=== PATIENT | male | born 1955 | race Caucasian/White ===

== ENCOUNTER → 2020-11-08 14:13 | Outpatient (CLI) | payer MEDICARE, SELFPAY ==
--- NOTE | ~2020-11-08 | CT_ITS ---
EXAMINATION: CT chest abdomen pelvis w con DATE: 11/08/2020 14:37 INDICATION: Chronic lymphocytic leukemia of B cell type in relapse TECHNIQUE: Computed tomography (CT) of the chest, abdomen, and pelvis was performed with 100 cc Omnip aque 350 intravenous contrast. Automated exposure control and iterative reconstruction technique were employed. Exam dose: 1196.32 mGy-cm total exam DLP. COMPARISON: 08/29/2017 CT chest FINDINGS: CHEST CT: There are calcified hilar and mediastinal nodes consistent with old granulomatous disease. No hilar o r mediastinal mass lesion or lymphadenopathy is evident. No thoracic aortic aneurysm or dissection. Normal heart size. Coronary artery calcification. No pericardial effusion. There is a very small sliding hiatal hernia. Calcified right upper lobe pulmonary granuloma. No pulmonary infiltrate or consolidation or pulmonary mass lesion is evident. There are scattered linear areas of atelectasis or more likely fibrosis. Bilateral small fat-containing foramen of Bochdalek hernias. ABDOMEN/PELVIS CT: The gallbladder appears unremarkable. No pericholecystic fluid or fat stranding. No bile duct or panc reatic duct dilatation. No hepatic, splenic, pancreatic or adrenal space-occupying mass lesion. Mild splenomegaly, spleen measuring up to 14.2 cm vertical dimension. There is a small cyst of each kidney, the largest measuring 6 mm, at the upper pole left kidney. No s uspicious or renal space-occupying mass lesion. No urinary tract calculus or hydroureteronephrosis. No abdominal aortic aneurysm. There are numerous shotty nonenlarged periaortic and aortocaval lymph n odes. There is one larger caudal aortocaval lymph node measuring up to 6.2 x 10.2 mm. 9.2 x 12.7 mm proximal right external iliac lymph node. Approximately 10.4 x 17.7 mm proximal left external iliac lymph node. 13.5 x 20.2 mm distal left external iliac lymph node. Bilateral inguinal lymph nodes, measuring up to approximately 8.5 x 15.7 mm on the left and 14.5 x 21 .2 mm on the right. Diverticulosis of the colon; no CT evidence of diverticulitis. The appendix is not visualized. No bow el obstruction, bowel wall thickening, pneumatosis or intraperitoneal free air is evident. Moderate prostate enlargement. The urinary bladder is unremarkable. There is a transitional lumbosacral vertebra with sacralization and pseudoarthrosis. There is very prominent hypertrophic degenerative change at the apophyseal joints. There is lumbar sp inal stenosis. No suspicious osteolytic or osteoblastic lesions are noted. IMPRESSION: Old granulomatous disease Very small sliding hiatal hernia Mild diverticulosis of the colon Mild splenomegaly 6.2 x 10.2 mm caudal aortocaval lymph node, bilateral external iliac lymph adenopathy Bilateral inguinal lymph nodes, measuring up to 8.5 x 15.7 on the left and 14.5 x 21.2 mm in the righ t Prostatomegaly Lumbar spinal stenosis Reviewed, dictated and finalized at [facility]. Reviewed, dictated and finalized at [facility]. IMPRESSION: Old granulomatous disease Very small sliding hiatal hernia Mild diverticulosis of the colon Mild splenomegaly 6.2 x 10.2 mm caudal aortocaval lymph node, bilateral external iliac lymph amadou opathy Bilateral inguinal lymph nodes, measuring up to 8.5 x 15.7 on the left and 14.5 x 21.2 mm in the right Prostatomegaly Lumbar spinal stenosis
[2020-11-08 14:28] LABS: Estimated Glomerular Filt Rate 47
== END ==
PROVIDERS: Visit Provider Internal Medicine Medical Oncology
DX: C91.12 Chronic lymphocytic leukemia of B-cell type in relapse (principal); R16.1 Splenomegaly, not elsewhere classified; K57.30 Diverticulosis of large intestine without perforation or abscess without bleeding; N40.0 Benign prostatic hyperplasia without lower urinary tract symptoms
CPT/HCPCS: 71260; 74177; Q9967

== ENCOUNTER 2022-02-07 07:21 | Emergency (ER) | payer MEDICARE, SELFPAY ==
[2022-02-07 07:24] VITALS: BP 178/99; PULSE 90; RESP 16; TEMP 36.6; O2SAT 98
--- NOTE | 2022-02-07 07:42 | ED.GENADULT ---
HPI - General Adult General Chief complaint: Skin/Abscess/Foreign Body Stated complaint: Insect bite L hand swelling Time Seen by Provider: 02/07/22 07:28 History of Present Illness HPI narrative: 66-year-old male presenting the emergency department for evaluation of left hand swelling. Patient states on morning he was at work when he got bit on the dorsum of the left hand by what he suspects was a wasp. Patient does not suspect he was punctured or injured another way. He suspects it was a wasp. Patient states he did have some pain and swelling of the hand over the course of the day on and it has continued to swell. Patient states that his was concerned this morning so she encouraged him to present to the emergency department. Related Data Home Medications Medication Instructions Recorded Confirmed allopurinol 300 mg tablet 300 mg PO DAILY 04/10/21 12/17/21 ibrutinib 420 mg tablet (Imbruvica) 420 mg PO DAILY 04/10/21 12/17/21 Allergies Allergy/AdvReac Type Severity Reaction Status Date / Time No Known Allergies Allergy Unknown Verified 02/07/22 07:27 Review of Systems Review of Systems: CONSTITUTIONAL: Denies fever, chills, or sweats. EYES: Denies visual changes, redness, or discharge. ENT: Denies rhinorrhea, congestion, sore throat, or otalgia. CARDIOVASCULAR: Denies chest pain, palpitations, or edema. RESPIRATORY: Denies cough or dyspnea. GASTROINTESTINAL: Denies abdominal pain, nausea, vomiting, or diarrhea. GENITOURINARY: Denies dysuria or hematuria. SKIN: Denies rash or itching. MUSCULOSKELETAL: See HPI NEUROLOGIC: Denies headache, numbness, or weakness. [facility] Past Medical History Medical History BMI 29.0-29.9,adult Chronic lymphocytic leukemia of B-cell type not having achieved remission Disorder of the skin and subcutaneous tissue, unspecified Lumbar spinal stenosis Screening for lipid disorders Screening for prostate cancer Family History Family History (Updated 12/17/21 @ 16:08 by Vonnie Torres CMA) Father Hypertension Mother Sibling No problems noted. 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 HEAD: normocephalic, atraumatic. EYES: PERRLA/EOMI, conjunctivae clear. NOSE: Normal no drainage THROAT: Pharynx clear, no exudate. NECK: Supple. No adenopathy, no masses. RESPIRATORY: Airway patent, respirations nonlabored. Clear to auscultation bilaterally, no rales, rhonchi, wheezing. CARDIOVASCULAR: Regular rate and rhythm without murmurs rubs or gallops. ABDOMINAL: Soft, nontender, nondistended, normal bowel sounds MUSCULOSKELETAL: Left hand swelling along the dorsum and the palmar surface. Limited erythema. mild tenderness to palpation. Neurovascular intact. Strong cap refill in all fingers NEURO: Alert. Cranial nerves II through XII intact. Grossly intact SKIN: Warm, dry. Normal Color Course Vital Signs Vital signs: Vital Signs Temperature 98 F 02/07/22 07:24 Pulse Rate 90 02/07/22 07:24 Respiratory Rate 16 02/07/22 07:24 Blood Pressure 178/99 H 02/07/22 07:24 Pulse Oximetry 98 02/07/22 07:24 Oxygen Delivery Room Air 02/07/22 07:24 Temperature 98 F 02/07/22 07:24 Pulse Rate 88 02/07/22 08:16 Respiratory Rate 18 02/07/22 08:16 Blood Pressure 121/93 H 02/07/22 08:16 Pulse Oximetry 95 02/07/22 08:16 Oxygen Delivery Room Air 02/07/22 07:24 Medical Decision Making Vital Signs Vital Signs: Vital Signs Temperature 98 F 02/07/22 07:24 Pulse Rate
[2022-02-07] MEDS: CEPHALEXIN 500 MG CAPSULE PO (07:47)
[2022-02-07] MEDS: predniSONE 40 MG, predniSONE 10 MG 50 MG PO (07:48)
[2022-02-07 08:16] VITALS: BP 121/93; PULSE 88; RESP 18; O2SAT 95
== END 2022-02-07 08:15 | disposition home or self-care (01) ==
PROVIDERS: Emergency Provider Emergency Medicine; PCP Family Medicine
DX: S60.562A Insect bite (nonvenomous) of left hand, initial encounter (principal); C91.10 Chronic lymphocytic leukemia of B-cell type not having achieved remission; Z77.22 Contact with and (suspected) exposure to environmental tobacco smoke (acute) (chronic); W57.XXXA Bitten or stung by nonvenomous insect and other nonvenomous arthropods, initial encounter
CPT/HCPCS: 99283; A9270; J7512

== ENCOUNTER 2023-06-25 01:00 | Day surgery (SDC) | payer MEDICARE, SELFPAY ==
[2023-06-09 13:29] VITALS: BMI 27.9
[2023-06-25 08:02] VITALS: BP 121/78; PULSE 87; RESP 16; TEMP 36.4; O2SAT 98
[2023-06-25] MEDS: LACTATED RINGERS 1,000 ML 150 ML IV CONT (08:12)
--- NOTE | 2023-06-25 08:19 | WPDANESEPPF ---
Anes - Initial Pre Proc Eval Procedure: Operation Date: 06/25/23 09:00 Proposed Procedures p Colonoscopy - Macho Burton MD Date/Time: 06/25/23 08:19 Surgeon: Macho Burton MD Pre Op Diagnosis: other specified soft tissue disorders Patient Data Age: 67 Gender: M Height: 1.8 m Weight: 89.7 kg Last Vital Signs Temp 97.5 F L 06/25/23 08:02 Pulse 87 06/25/23 08:02 Resp 16 06/25/23 08:02 BP 121/78 06/25/23 08:02 Pulse Ox 98 06/25/23 08:02 O2 Del Method Room Air 06/25/23 08:02 Allergies Allergy/AdvReac Type Severity Reaction Status Date / Time No Known Allergies Allergy Unknown Verified 06/25/23 08:01 Home Medications Medication Instructions Recorded Confirmed Type rosuvastatin 20 mg tablet (Crestor) 20 mg PO DAILY #90 tabs 04/04/23 06/09/23 Rx zanubrutinib 80 mg capsule 160 mg PO BID 06/09/23 06/09/23 History (Benjamin) Patient hx anesthesia problems: none Family hx anesthesia problems: none Results Review: All pre-operative results and documents have been reviewed as part of the pre-operative evaluation. [facility] Past Medical History Medical History Arthralgia BMI 29.0-29.9,adult BMI 30.0-30.9,adult Cellulitis, leg Chronic lymphocytic leukemia of B-cell type not having achieved remission CLL (chronic lymphocytic leukemia) Disorder of the skin and subcutaneous tissue, unspecified Lumbar spinal stenosis Screening for lipid disorders Screening for prostate cancer Family History Family History Father Hypertension Mother Sibling No problems noted. 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 Informed Consent: The patient's anesthetic plan and its attendant risks and benefits were discussed with the patient/family/POA. Questions were solicited and answers provided to the satisfaction of the patient/family/POA.
--- NOTE | 2023-06-25 08:33 | PM.HPGS ---
History of Present Illness History of Present Illness Consent: Risks, benefits, and alternatives have been discussed and questions answered. Patient agrees to proceed with procedure. Chief complaint: hsitory of colon polyp Narrative: Devin Knowles is a 67 year old male Presents for colonoscopy. Patient has a history of a tubulovillous adenoma removed from the colon in 2018. Patient's current weight appetite and bowel movements are normal. Patient denies abdominal pain. He has had no bleeding. Family history noncontributory. Past medical history is significant for CLL. Review of Systems Review of Systems: Review of systems noncontributory. [facility] Past Medical History Medical History Arthralgia BMI 29.0-29.9,adult BMI 30.0-30.9,adult Cellulitis, leg Chronic lymphocytic leukemia of B-cell type not having achieved remission CLL (chronic lymphocytic leukemia) Disorder of the skin and subcutaneous tissue, unspecified Lumbar spinal stenosis Screening for lipid disorders Screening for prostate cancer Family History Family History Father Hypertension Mother Sibling No problems noted. 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 [employer] Gender identity (if verbalized by the patient): Male Spiritual care concerns: No Meds Home Medications and Allergies Home Medications Medication Instructions Recorded Confirmed Type rosuvastatin 20 mg tablet (Crestor) 20 mg PO DAILY #90 tabs 04/04/23 06/09/23 Rx zanubrutinib 80 mg capsule 160 mg PO BID 06/09/23 06/09/23 History (Benjamin) Allergies Allergy/AdvReac Type Severity Reaction Status Date / Time No Known Allergies Allergy Unknown Verified 06/25/23 08:01 Vital Signs Vital Signs - 24 hr 06/25/23 08:02 Temperature 97.5 F L Pulse Rate 87 Respiratory Rate 16 Blood Pressure 121/78 Pulse Oximetry 98 Oxygen Delivery Room Air Exam Narrative: Physical exam reveals patient to be alert. Vital signs stable. HEENT exam is unremarkable. Patient is anicteric. Lungs are clear to auscultation and percussion. Heart is without murmur or extra sounds. Abdomen bowel sounds are present soft nontender with no organomegaly. Digital external rectal exam normal. Assessment and Plan Assessment and plan (1) History of colon polyps: Code(s): Z86.010 - Personal history of colonic polyps Status: Acute Assessment and Plan: Patient has a history of a colon polyp removed in 2018. Plan for surveillance colonoscopy now and consider this at 5 year intervals.
[2023-06-25 08:57] VITALS: BP 117/69; PULSE 96; RESP 20; O2SAT 96
[2023-06-25 09:07] VITALS: BP 125/78; PULSE 85; RESP 20; O2SAT 98
[2023-06-25 09:17] VITALS: BP 131/89; PULSE 80; RESP 18; O2SAT 98
== END 2023-06-25 09:25 | disposition home or self-care (01) ==
PROVIDERS: PCP Family Medicine; Visit Provider Internal Medicine Gastroenterology
PROC: 0DJD8ZZ Inspection of Lower Intestinal Tract, Via Natural or Artificial Opening Endoscopic (ICD-10-PCS; CPT 45378; principal; 2023-06-25 09:00)
DX: Z12.11 Encounter for screening for malignant neoplasm of colon (principal); K64.8 Other hemorrhoids; K57.30 Diverticulosis of large intestine without perforation or abscess without bleeding; C91.10 Chronic lymphocytic leukemia of B-cell type not having achieved remission; Z86.010 Personal history of colon polyps
CPT/HCPCS: G0105; J2704; J7120